=== PATIENT | female | born 1945 | race Caucasian/White ===

== ENCOUNTER 2020-02-19 11:05 | Emergency (ER) | payer MEDICARE ==
[~2020-02-19] VITALS: Ht 152.4 cm; Wt 57.3 kg
[2020-02-19 11:08] VITALS: BP 127/47
== END 2020-02-19 12:30 ==
LOC: ED 12:08
DX: I10 Essential (primary) hypertension (principal); Z76.0 Encounter for issue of repeat prescription
CPT/HCPCS: 99281